=== PATIENT | male | born 1985 | race African-American/Black ===

== ENCOUNTER 2020-01-01 05:04 | Emergency (ER) | payer OTHER ==
--- NOTE | 2020-01-01 05:44 | ED Physician Documentation ---
History of Present Illness - Stated complaint Stated Complaint: L GROIN PAIN - Chief complaint Chief Complaint: General - History obtained from History obtained from: Patient - History of Present Illness Timing: Enter time (03:00), Today Pain level now: 3 Improved by: rest Worsened by: movement of LLE (particularly lifting the leg/hip flexion) - Additonal information Additional information: c/o woken from sleep 3 AM this morning with left groin pain that is worse with movement of the LLE (particularly hip flexion/raising leg off bed). He had similar but milder symptoms past 1-2 days but no inciting event or unusual activity Review of Systems Constitutional: denies: Fever, Chills, Sweats GI: denies: Abdominal Pain, Nausea, Vomiting, Constipation, Diarrhea : denies: Dysuria, Frequency, Hematuria, Discharge Skin: denies: Rash Musculoskeletal: denies: Back pain PD PAST MEDICAL HISTORY - Past Medical History Past Medical History: No - Past Surgical History Past Surgical History: No - Present Medications Home Medications: Ambulatory Orders Medication Instructions Recorded Confirmed Ibuprofen [Motrin] 600 mg PO TID PRN #25 tab 01/01/20 - Allergies Allergies/Adverse Reactions: Allergies Allergy/AdvReac Type Severity Reaction Status Date / Time No Known Drug Allergies Allergy Verified 01/01/20 05:29 - Social History Does the pt smoke?: No Smoking Status: Never smoker Does the pt drink ETOH?: No Does the pt have substance abuse?: No - Immunizations Immunizations are current?: Yes - POLST Patient has POLST: No PD ED PE NORMAL - Vitals Vital signs reviewed: Yes - General General: Alert and oriented X 3, No acute distress, Well developed/nourished - Cardiac Cardiac: RRR, No murmur - Respiratory Respiratory: No respiratory distress, Clear bilaterally - Abdomen Abdomen: Soft, Non distended, Other (tenderness midline of anterior inguinal canal without palpable mass including with valsalva) - Back Back: No CVA TTP - Derm Derm: No rash PD ED PE EXPANDED - Male Male : Testes descended tom. No: Tenderness Results - Vitals Vitals: Vital Signs - 24 hr 01/01/20 01/01/20 01/01/20 05:13 06:50 08:06 Temperature 36.9 C 36.8 C Heart Rate 59 L 60 53 L Respiratory 16 16 12 Rate Blood Pressure 153/103 H 148/100 H 128/68 O2 Saturation 99 100 100 01/01/20 10:05 Temperature 36.6 C Heart Rate 68 Respiratory 15 Rate Blood Pressure 138/70 H O2 Saturation 99 Oxygen O2 Source Room air - Labs Labs: Laboratory Tests 01/01/20 01/01/20 06:05 06:05 WBC 6.0 RBC 4.72 Hgb 14.1 Hct 42.8 MCV 90.7 MCH 29.9 MCHC 32.9 RDW 12.8 Plt Count 305 MPV 9.1 Neut # (Auto) 2.7 Lymph # (Auto) 2.3 [place] # (Auto) 0.7 Eos # (Auto) 0.2 Baso # (Auto) 0.1 Absolute Nucleated RBC 0.00 Nucleated RBC % 0.0 Sodium 138 Potassium 3.6 Chloride 101 Carbon Dioxide 28 Anion Gap 9.0 BUN 14 Creatinine 1.1 Estimated GFR (MDRD) 94 Glucose 109 H Calcium 9.2 Total Bilirubin 0.7 AST 21 ALT 26 Alkaline Phosphatase 62 Total Protein 7.5 Albumin 4.1 Globulin 3.4 Albumin/Globulin Ratio 1.2 Lipase 32 - Rads (name of study) CT A/P Radiology: Prelim report reviewed, See rad report PD MEDICAL DECISION MAKING - ED course Complexity details: reviewed results, re-evaluated patient, considered differential, d/w patient Departure - Departure Disposition: 01 Home, Self Care Clinical Impression: Left groin pain Condition: Good Instructions: ED Strain Groin Follow-Up: Carlos Quiroz MD [Primary Care Provider] - Within 3 Days Prescriptions: Ibuprofen [Motrin] 600 mg PO TID PRN #25 tab PRN Reason: Pain Forms: Activity restrictions Discharge Date/Time: 01/01/20 10:07
[2020-01-01 06:14] LABS: BASOPHILS # (AUTO) 0.1 10^3/uL (0.0-0.1); BASOPHILS % (AUTO) 0.8 %; EOSINOPHILS # (AUTO) 0.2 10^3/uL (0.0-0.7); HGB - HEMOGLOBIN 14.1 g/dL (14.0-18.0); LYMPHOCYTES # (AUTO) 2.3 10^3/uL (1.5-3.5); LYMPHOCYTES % (AUTO) 38.4 %; MEAN CORPUSCULAR HEMOGLOBIN 29.9 pg (27.0-31.0); MEAN CORPUSCULAR HGB CONC 32.9 g/dL (32.0-36.0); MEAN CORPUSCULAR VOLUME 90.7 fL (80.0-94.0); MEAN PLATELET VOLUME 9.1 fL (7.4-11.4); MONOCYTES # (AUTO) 0.7 10^3/uL (0.0-1.0); MONOCYTES % (AUTO) 11.9 %; NEUTROPHILS # (AUTO) 2.7 10^3/uL (1.5-6.6); NEUTROPHILS % (AUTO) 44.7 %; PLT - PLATELET COUNT 305 10^3/uL (130-450); RED BLOOD COUNT 4.72 10^6/uL (4.70-6.10); RED CELL DISTRIBUTION WIDTH 12.8 % (12.0-15.0)
[2020-01-01 06:23] LABS: ALBUMIN 4.1 g/dL (3.2-5.5); ALBUMIN/GLOBULIN RATIO 1.2 (1.0-2.2); BILIRUBIN,TOTAL 0.7 mg/dL (0.2-1.0); CALCIUM 9.2 mg/dL (8.5-10.3); CREATININE 1.1 mg/dL (0.6-1.2); TOTAL PROTEIN 7.5 g/dL (6.7-8.2)
[2020-01-01] MEDS ORDERED: IOVERSOL 320 100 ML VIAL IVP ONE ×2 (07:04→10:14)
--- NOTE | 2020-01-01 09:12 | CT Report ---
PROCEDURE: Abdomen/Pelvis W INDICATIONS: left flank/groin pain CONTRAST: IV CONTRAST: Optiray 320 ml: 100 PO CONTRAST: *NO PO CONTRAST TECHNIQUE: After the administration of contrast, 5 mm thick sections acquired from the diaphragms to the sym physis. 5 mm thick coronal and sagittal reformats were acquired. For radiation dose reduction, the following was used: automated exposure control, adjustment of mA and/or kV according to patient size . COMPARISON: None. FINDINGS: Image quality: Excellent. ABDOMEN: Lung bases: Lung bases are clear. Heart size is normal. Solid organs: Liver and spleen are normal in size and enhancement. Gallbladder appears normal Bili mik system is non dilated. Pancreas enhances normally. No adrenal nodules. Kidneys demonstrate nor mal size and enhancement, without hydronephrosis. Peritoneum and bowel: Bowel loops demonstrate normal wall thickness and caliber. No free fluid or a ir. Nodes and vessels: No retroperitoneal or mesenteric adenopathy by size criteria. Aorta and inferior vena cava are normal in size. Miscellaneous: No ventral hernias. PELVIS: Genitourinary: Bladder wall thickness is normal. Miscellaneous: No inguinal hernias or adenopathy. Bones: No suspicious bony lesions. No vertebral body compression fractures. IMPRESSION: No source of reported left flank and groin pain. Passage of a calculus including from th e bladder lumen could explain that symptomatology which would leave no identifiable evidence if the c alculus was small. Reviewed by: José Antonio Viera MD on 01/01/2020 9:10 AM PDT Approved by: José Antonio Viera MD on 01/01/2020 9:10 AM PDT Station ID: [id number]
[2020-01-01] MEDS ORDERED: KETOROLAC 30 MG/ML VIAL IVP STA (09:35)
[2020-01-01] MEDS ORDERED: ACETAMINOPHEN 325 MG TABLET PO STA (09:35)
--- NOTE | 2020-01-01 09:37 | ED Physician Documentation ---
ED Addendum - Addendum Addendum: 01/01/20 09:35Seen on change of shift after CT results. The CT did not show any acute abnormalities. Presume inguinal muscle strain given local tenderness and worse with stretching. We will have him a couple of days off work and use of anti-inflammatories. Follow-up with your primary care if not improved. Diagnoses left inguinal pain acute #2 inguinal muscle strain Disposition discharged home in stable condition
[2020-01-01 10:07] VITALS: BP 138/70
== END 2020-01-01 10:07 | disposition home or self-care (01) ==
LOC: ED 05:04
DX: R10.32 Left lower quadrant pain (principal); S39.011A Strain of muscle, fascia and tendon of abdomen, initial encounter; X58.XXXA Exposure to other specified factors, initial encounter
CPT/HCPCS: 36415; 74177; 80053; 83690; 85025; 96374; 99282; 99284; A9270; Q9967